=== PATIENT | male | born 1980 | race Caucasian/White ===

== ENCOUNTER 2018-05-28 09:39 | Emergency (ER) | payer BC, SELFPAY ==
[2018-05-28 10:26] VITALS: BP 141/100; PULSE 60; RESP 17; TEMP 36.8; O2SAT 98
--- NOTE | 2018-05-28 10:33 | DI.REPORT_ITS ---
SYMPTOM/DIAGNOSIS: MIDFOOT BONY TENDERNESS. LEFT FOOT: A minimally displaced oblique fracture of the diaphysis of the proximal phalanx of the 4th toe is demonstrated. There is no evidence of a dislocation.
--- NOTE | 2018-05-28 10:35 | ED.GENADUL_ITS ---
Disposition Clinical Impression: Toe fracture, left Disposition: HOME Condition: Stable Instructions: Toe Fracture (ED) Additional Instructions: Please continually wear your hard sole postop shoe until cleared by podiatry. You may continue to use [id number]-[id number] pain medication as needed. You should call the podiatry office tomorrow afternoon for arrangement of your follow-up appointment in the next 1-2 weeks as directed by their staff. Referrals: Rc Fulton DPM [[facility]YSICIAN] - 1 week Medical Decision Making - Radiology Data Radiology results: report reviewed, image reviewed - Medical Decision Making Patient presenting to the emergency department status post injury to the left foot 2 weeks ago with continued pain and discomfort. Physical exam shows midfoot tenderness along with mild base of fifth metatarsal tenderness no crepitus, no step-off, and normal gait and ambulation are noted but given continued pain and discomfort after 2 weeks of injury do feel that radiological imaging of the foot is warranted to rule out possible suspicion of mild fracture versus sprain. Otherwise I do not feel there are any other emergent needs at this time. Patient has a fracture to the proximal phalanx of the left fourth toe. Toe is not overly malrotated and alignment seems appropriate. Patient was put in a postop shoe and informed that he should follow-up with podiatry for reassessment in the next 1-2 weeks as recommended by their office. Otherwise patient has sufficiently been able to control pain rhlr-zsr-[id number] pain medications I do not feel that any other meds are needed at this time. After discussion of diagnosis and plan of care with patient patient agreed and stated no further needs, questions, or concerns at this time. History of Present Illness - General Chief complaint: Orthopedic Stated complaint: FOOT PROBLEM Time Seen by Provider: 05/28/18 09:58 Source: patient, RN notes reviewed Mode of arrival: ambulatory Limitations: no limitations - History of Present Illness Initial comments: Patient reports 2 weeks ago he was jumping off a dock and injured his left foot. He states since then he has had swelling to the lateral foot and recently had taken a long walk and noticed significant increase in swelling. He is a very active individual and is concerned due to continued pain and mild improvement. Onset/Timin -: week(s) Location: left, lower extremity Severity scale (1-10): 3 Quality: aching Consistency: constant Improves with: none Worsens with: other (Activity) Associated Symptoms: denies other symptoms Treatments Prior to Arrival: none - Related Data Unknown [No Known Home Meds] 05/28/18 Allergies Allergy/AdvReac Type Severity Reaction Status Date / Time No Known Allergies Allergy Unverified 04/11/14 19:57 Review of Systems Constitutional: no symptoms reported Respiratory: no symptoms reported Musculoskeletal: as per HPI Skin: denies: change in color Comment: All other systems reviewed and negative Past Medical History - Past Medical History Medical history: no medical history Surgical history: no surgical history - Social History Smoking status: never smoker Alcohol use: occasionally Drug use: none General Exam - General Limitations: no limitations General appearance: alert, in no apparent distress - Head Head exam: Present: atraumatic - Respiratory Respiratory exam: Absent: respiratory distress - Cardiovascular Cardiovascular Exam: Present: regular rate, normal rhythm - Expanded Lower Extremity Exam Left Lower Leg exam: Present: normal inspection Ankle exam: Present: normal inspection Foot/Toe exam: Present: full ROM, tenderness (To palpation of second third and fourth mid metatarsals), swelling (Mild to lateral foot), tenderness at base of 5th metatarsal (Very mild). Absent: ecchymosis, deformity, calcaneal tenderness Neuro vascular tendon exam: Present: no vascular compromise. Absent: pulse deficit, motor deficit, sensory deficit, tendon deficit, abnormal 2-point discrimination, significant pain with passive ROM of distal joint Gait: observed and normal - Neurological Exam Neurological exam: Present: alert, oriented X3. Absent: altered - Skin Skin exam: Present: warm, dry, intact, normal color Course Vital Signs - 24 hr 05/28/18 10:26 Temperature 36.8 C Pulse 60 Respiratory 17 Rate Blood Pressure 141/100 Pulse Oximetry 98
--- NOTE | 2018-05-29 09:09 | PDOC.ERCMPRO ---
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 Dr. Franks is PCP. Referral faxed to [facility] for them to make f/u. If patient can't be seen in a week with podiatry then he could be seen by Dr. Franks.
== END 2018-05-28 11:33 | disposition home or self-care (01) ==
LOC: ER 04-02 11:11
PROVIDERS: Emergency Provider Student in an Organized Health Care Education/Training Program; PCP Emergency Medicine
DX: S92.512A Displaced fracture of proximal phalanx of left lesser toe(s), initial encounter for closed fracture (principal)
CPT/HCPCS: 29515; 99284; 73630; 99282

== ENCOUNTER 2020-06-29 14:10 | Outpatient (CLI) | payer BC, SELFPAY ==
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
== END 2020-06-29 14:30 ==
PROVIDERS: PCP Nurse Practitioner Family; Referring Provider Nurse Practitioner Family; Visit Provider Physician Assistant
DX: M25.532 Pain in left wrist (principal)
CPT/HCPCS: 73110

== ENCOUNTER 2023-01-29 03:06 | Outpatient (CLI) | payer OTHER, SELFPAY ==
[2023-01-29 12:54] LABS: Hemoglobin A1C 5.7 % (<5.7)
[2023-01-29 13:16] LABS: Anion Gap 6.5 mmol/L (3-11); BUN 21 mg/dL (7-18); CO2 29.5 mmol/L (21.0-32.0); CREATININE 1.2 mg/dL (0.70-1.30); Calculated LDL 149 mg/dL (<100); Chloride 104 mmol/L (98-107); Cholesterol 218 mg/dL (<200); Estimated GFR 76.48 (mL/min/1.73m2); Glucose 97 mg/dL (74-106); HDL Cholesterol 39 mg/dL (40-60); Potassium 4.2 mmol/L (3.5-5.1); Sodium 140 mmol/L (136-145); TSH (W/Ref FT4) 2.05 uIU/mL (0.36-3.74); Triglyceride 152 mg/dL (<150)
== END 2023-01-29 03:07 | disposition home or self-care (01) ==
LOC: LOS 03:06
PROVIDERS: PCP Nurse Practitioner Family; Visit Provider Nurse Practitioner Family
DX: Z00.00 Encounter for general adult medical examination without abnormal findings (principal); R03.0 Elevated blood-pressure reading, without diagnosis of hypertension; E66.8 Other obesity; Z13.1 Encounter for screening for diabetes mellitus; Z13.29 Encounter for screening for other suspected endocrine disorder; Z13.220 Encounter for screening for lipoid disorders
CPT/HCPCS: 36415; 80048; 80061; 83036; 84443

== ENCOUNTER 2024-08-20 02:29 | Outpatient (CLI) | payer BC, SELFPAY ==
--- OUTSIDE RECORDS SUMMARY | 2024-08-20 02:30 | XMS_ITS | Referral Summary ---
Author Organization [facility] Address [address] [place] [address] Care Team Providers Care Cashier Courtesy Booth Name Role Phone Unknown, Provider Primary Care Provider Unava ilable Social History Tobacco Use Types Packs/Day Years Used Date Smoking Tobacco: Never Assessed Sex and Gender Information Value Date Recorded Sex Assigned at Not on file Gender Identity Not on file Sexual Orientation Not on file Plan of Treatment Not on file Care Teams Cashier Courtesy Booth Relationship Specialty Start Date End Date Unknown, ProviderMD PCP - General 09/01/15
--- OUTSIDE RECORDS SUMMARY | 2024-08-20 02:30 | XMS_ITS | Clinical Summary ---
Author Organization [facility] Address [address] [place] [address] Care Team Providers Care Towboat Pilot Name Role Phone Unknown, Provider MD Primary Care Provider Unava ilable Social History Tobacco Use Types Packs/Day Years Used Date Smoking Tobacco: Never Assessed Sex and Gender Information Value Date Recorded Sex Assigned at Not on file Gender Identity Not on file Sexual Orientation Not on file Plan of Treatment Health Maintenance Due Date Last Done Comments Hepatitis C Screen 1978 Hepatitis B Vaccine (1 of 3 - 19+ 3-dose series) 04/28 COVID-19 Vaccine (2022-24 season) 2023 Care Teams Towboat Pilot Relationship Specialty Start Date End Date Unknown, Provider, PCP - General 09/01/15
--- OUTSIDE RECORDS SUMMARY | 2024-08-20 02:30 | XMS_ITS | Encounter Summary ---
[place] [address] Care Team Providers Care Metal Cans Supervisor Name Role Phone Donna Alonzo APRN Primary Care Provider [phone] Encounter Details Date Type Department Care Team (Latest Contact Info) Description 06/28/2024 Travel Social History Tobacco Use Types Packs/Day Years Used Date Smoking Tobacco: Never Assessed Sex and Gender Information Value Date Recorded Sex Assigned at Not on file Gender Identity Not on file Sexual Orientation Not on file documented as of this encounter Plan of Treatment Not on file documented as of this encounter Visit Diagnoses Not on filedocumented in this encounter Care Teams Metal Cans Supervisor Relationship Specialty Start Date End Date Donna Alonzo APRN [address] [place] [address] PCP - General Family Medicine 02/05/24 documented as of this encounter
--- OUTSIDE RECORDS SUMMARY | 2024-08-20 02:30 | XMS_ITS | Encounter Summary ---
Author Organization [facility] Address [address] [place] [address] Care Team Providers Care Chief Building Inspector Name Role Phone Unavailable Primary Care Provider Unavailabl e Encounter Details Date Type Department Care Team (Late st Contact Info) Description 11/23/2002 Results Only [facility] conversion [address] [place] [address] Pravin Cuenca MD [address] [place] [address] Social History Tobacco Use Types Packs/Day Years Used Date Smoking Tobacco: Never Assessed Sex and Gender Information Value Date Recorded Sex Assigned at Not on file Gender Identity Not on file Sexual Orientation Not on file documented as of this encounter Plan of Treatment Not on file documented as of this encounter Procedures Procedure Name Priority Date/Time Associated Diagnosis Comments SURGICAL PATHOLOGY Routine 11/23/2002 0:00 EST documented in this encounter Results * SURGICAL PATHOLOGY (11/23/2002 0:00 EST) Pathology Report: SURGICAL PATHOLOGY REPORT Reports generated via electronic interface contain original data; however they are lacking the format of the original report. Caution should be taken when reading/interpreti ng unformatted reports. Name: ? ADONIS CARMONA ? Accession #: ? [id number] ? : ? 1980 (Age: 22) ??M ? Collect Date: ? 11/23/2002 ? Location: ? [facility] ? Receive Date: ? 11/23/2002 ? Provider: GAURI CUENCA MD Copy to: SAKINA GRAVES MD ? Final Pathologic Diagnosis: ? Hernia sac, right, inguinal, herniorrhaphy: - Fibromembranous connective tissue grossly consistent with hernia sac. Gross only. Document reviewed and electronically signed by: MIK PHELAN MD Report ??Date: 11/25/2002 09:24 By the signature above, the attending physician certifies that he/she has personally conducted a gross and/or microscopic examination of the described specimens and rendered or confirmed the above diagnosis. Specimen(s) Received: ? Hernia sac Clinical History: ? R indirect ing. Hernia; hernia sac Gross Description: ? Received in formalin labelled Carmona and hernia sac is a johnson-pink thin fibromembranous sac-like structure measuring 6.5 x 3.5 x 0.2 cm. The cut surfaces are johnson-pink and homogeneous. ??No discrete nodules are identified. ??No sections submitted. ??Gross diagnosis. (Meghann Zacarias-TRISTAN)/[facility] End of Report OWEN RENE 11/23/2002 11/23/2002 15: 58 EST Pravin Cuenca MD PATHOLOGY ORDERABLES Performing Organization Address City/State/[facility] Co de Phone Number OWEN RENE [address] [place] [address] documented in this encounter Visit Diagnoses Not on filedocumented in this encounter
--- OUTSIDE RECORDS SUMMARY | 2024-08-20 02:30 | XMS_ITS | Clinical Summary ---
Author Organization [facility] Address [facility] [place] [address] Care Team Providers Care Shared Services Manager Name Role Phone JaviDonna naranjo ADRIANNA Primary Care Provider [phone] Allergies No known active allergies Medications Medication Sig Dispensed Refills Start Date End Date Status ketoconazole (NIZORAL) 2 % ShampooIndications:Se borrheic dermatitis Apply topically to scalp & face in shower 2-3 times weekly. Lather on affected areas, leave on 3-5 minutes, then rinse. 120 mL 3 06/28/2024 Active Encounters Date Type Department Care Team Description 06/28/2024 3:40 PM EDT Office Visit Dermatology at [facility] [address] [place] [address] Ruddy Villalpando MD Multiple melanocytic nevi; Seborrheic dermatitis; Seborrheic keratoses; Lentigines; Nails angioma; Family history of melanoma 06/28/2024 Travel from Last 3 Months Immunizations Name Administration Dates Next Due Tdap (Adacel, Boostrix) 07/14/2006 Social History Tobacco Use Types Packs/Day Years Used Date Smoking Tobacco: Never Assessed Sex and Gender Information Value Date Recorded Sex Assigned at Not on file Gender Identity Not on file Sexual Orientation Not on file Plan of Treatment Health Maintenance Due Date Last Done Comments CT Colonography 1978 Colonoscopy 1978 Colorectal Cancer Screening 1978 FIT DNA 1978 FIT 1978 Sigmoidoscopy (10 year) with FIT yearly 1978 Sigmoidoscopy 1978 HIV screen 1996 Hepatitis C Screening 1996 Lipid Screening 1996 Hepatitis B vaccine (0-59 yrs) (1) 1997 Tetanus/Diphtheria/Pertussis Vaccines (2 - Td or Tdap) 07/14/2016 07/14/2006 Covid-19 Vaccine (1 - season) 2024 Influenza (Flu) vaccine (1 o f 1 - Influenza standard series) 06/20/2024 Care Teams Shared Services Manager Relationship Specialty Start Date End Date Donna Alonzo APRN [address] [place], [place] [id number] PCP - General Family Medicine 02/05/24
--- OUTSIDE RECORDS SUMMARY | 2024-08-20 02:30 | XMS_ITS | Encounter Summary ---
Author Organization [facility] [place] [address] Care Team Providers Care Cardiac Sonographer Name Role Phone Donna Alonzo APRN Primary Care Provider [phone] Reason for Visit * Consultation (Routine) - Authorized Specialty Diagnoses / Procedures Referred By Contjudy t Referred To Contact Dermatology Diagnoses Family history of malignant neoplasm of other organs or systems FAMILY HISTORY OF MELANOMA IN BOTH PARENTS Donna Alonzo APRN [address] [place] [address] [facility] Dermatology [address] [place] [address] Referral ID Status Reason Start Date Expiration Date Visits Requested Visits Authorized [id number] Authorized Consult, Test & Treat PCP Updated and/or Approved 02/05/2024 02/04/2025 6 6 Encounter Details Date Type Department Care Team (Late st Contact Info) Description 06/28/2024 3:40 PM EDT Office Visit Dermatology at [facility] [address] [place] [id number] Ruddy Villalpando MD [facility] [address] [place] [address] Multiple melanocytic nevi; Seborrheic dermatitis; Seborrheic keratoses; Lentigines; Nails angioma; Family history of melanoma Social History Tobacco Use Types Packs/Day Years Used Date Smoking Tobacco: Never Assessed Sex and Gender Information Value Date Recorded Sex Assigned at Not on file Gender Identity Not on file Sexual Orientation Not on file documented as of this encounter Progress Notes * Ruddy Villalpando MD - 06/28/2024 3:40 PM EDT Images from the original note were not included. DEPARTMENT OF DERMATOLOGY Medical Dermatology Clinic Note Provider: Ruddy Villalpando MD Patient's preferred name Adonis Preferred contact method for results [x]Phone []myD-H []Letter Detailed phone message OK? Yes Are there any other people with whom we may discuss your care? Past Medical History Date, location, treatment Melanoma No Dysplastic nevi No SCC No BCC No AKs No UV Exposure & Protection N Other relevant past medical history No Family History Details Melanoma Mother & father NMSC No Other relevant family history No Social History Occupation: Pre-Procedure Questions Details Allergy to lidocaine, epinephrine, Dermabond, chlorhexidine, or adhesives Bleeding disorder or blood thinners Implanted devices (Pacemaker, defibrillator, deep brain stimulator, cochlear implant) History of Present Illness: Adonis Allen is a 44 y.o. Patient is referred to the clinic at the request of Donna Alonzo for a full skin exam. Patient reports the following: - Reports dryness and scaling of the face and scalp occurring over the course of ~1 year. Review of Systems: General: Feeling well. Skin: No other skin concerns. Medications: Reviewed in eD-H Allergies: Reviewed in eD-H Skin Examination: Full skin examination: Patient asked to undress to their comfort level. Verbalized that the provider's preference is that patient remove all clothing and that the provider will not examine areas patient elects to keep covered. Examination of the scalp, hair, head, face, ears, neck, chest, axillae, abdomen, back, buttocks, genitalia, and upper and lower extremities was normal with the exception ofthe findings below. Assessment/Plan #. Melanocytic Nevi - Scattered brown macules and papules on trunk and extremities with reassuring pigment pattern on dermoscopy. - Discussed benign appearing nevi based on today's exam. - Recommended follow-up with dermatology if any changes in any pigmented lesions are noted or any concerns regarding new lesions arise. #. Seborrheic Dermatitis - Scale overlying erythematous patches on the beardline and scalp. - Discussed etiology and treatment options. - Start Rx ketoconazole 2% shampoo: Apply topically to scalp & face in shower 2- 3 times weekly.Lather on affected areas, leave on 3-5 minutes, then rinse. #. Seborrheic Keratoses - Stuck on, waxy papules on the trunk and extremities. - Discussed benign nature of lesions and provided reassurance. No treatment necessary at this time. #. Lentigines - Scattered light-brown, evenly pigmented, well-demarcated macules on sun-exposed areas of the trunk and extremities. - No worrisome pigmented lesions. Discussed benign nature of lesions and provided reassurance. Willcontinue to monitor. #. Nails Angiomas - Multiple bright red, well-demarcated papules on the trunk and extremities. - Discussed benign nature of lesions and provided reassurance. No treatment necessary at this time. #. Family History of Melanoma - Discussed with patient that given the increased risk factor of their positive family history for malignant melanoma, I recommended that they have a full skin exam every year. - Recommended self-monitoring of moles. Other: N/A RTC: 1 year for FSE []Note routed to children's nursery assistant [x]Recall placed in scheduling system []Appointment scheduled at checkout Scribe attestation: Rajiv Delroy Huddleston has performed the documentation for this encounter in the presence of and acting as a scribe for Ruddy Villalpando MD. I performed the above scribed service and agree with the accuracy of the documentation in this encounter. Reviewed and signed by: Ruddy Villalpando MD PGY-2 Dermatology [facility] Patient seen and evaluated with staff box printer: Jose L Yip MD Department of Dermatology [facility] * Jose L Yip MD - 06/28/2024 3:40 PM EDT I directly supervised Ruddy Villalpando MD in the care of this Dermatology patient in person. I saw and evaluated this patient with Ruddy Villalpando MD. Ruddy Villalpando MD presented the history and physical exam details to me, then we saw the patienttogether, and I confirmed these findings. I agree with details as written. My physical examination confirms Ruddy Villalpando MD's findings. The assessment and plan were formulated in discussion with me at the time of visit, and I agree with them as documented. JOSE L YIP MD Staff Rn Diabetes Department of Dermatology [facility] documented in this encounter Plan of Treatment Not on file documented as of this encounter Visit Diagnoses Diagnosis Multiple melanocytic nevi Seborrheic dermatitis Seborrheic dermatitis, unspecified Seborrheic keratoses Lentigines Other dyschromia Nails angioma Nevus, non-neoplastic Family history of melanoma Family history of other specified malignant neoplasm documented in this encounter Care Teams Cardiac Sonographer Relationship Specialty Start Date End Date Joannareena DonnaADRIANNA tee [address] [place] [address] PCP - General Family Medicine 02/05/24 documented as of this encounter
--- OUTSIDE RECORDS SUMMARY | 2024-08-20 02:30 | XMS_ITS | Encounter Summary ---
Author Organization [facility] Address [facility] [place] [address] Care Team Providers Care Housecalls Nurse Name Role Phone Donna Alonzo APRN Primary Care Provider [phone] Reason for Referral * Consultation (Routine) - Authorized Specialty Diagnoses / Procedures Referred By Elijah mtz Referred To Contact Dermatology Diagnoses Family history of malignant neoplasm of other organs or systems FAMILY HISTORY OF MELANOMA IN BOTH PARENTS Donna Alonzo APRN [address] [place] [address] [facility] Dermatology [address] [place] [address] Referral ID Status Reason Start Date Expiration Date Visits Requested Visits Authorized [id number] Authorized Consult, Test & Treat PCP Updated and/or Approved 02/05/2024 02/04/2025 6 6 Encounter Details Date Type Department Care Team (Late st Contact Info) Description 02/05/2024 Transcribe Orders eDH Incoming Referrals [phone] Donna Alonzo APRN [address] [place], [place] [address] Family history of malignant neoplasm of other organs or systems Social History Tobacco Use Types Packs/Day Years Used Date Smoking Tobacco: Never Assessed Sex and Gender Information Value Date Recorded Sex Assigned at Not on file Gender Identity Not on file Sexual Orientation Not on file documented as of this encounter Plan of Treatment Scheduled Referrals Name Type Priority Associated Diagnoses Order Schedule Referral to Dermatology Outpatient Referral Routine Family history of malignant neoplasm of other organs or systems Ordered: 02/05/2024 documented as of this encounter Visit Diagnoses Diagnosis Family history of malignant neoplasm of other organs or systems documented in this encounter Care Teams Housecalls Nurse Relationship Specialty Start Date End Date Donna Alonzo APRN [address] [place] [address] [address] [place] [address] PCP - General Family Medicine 02/05/24 documented as of this encounter
[2024-08-20 12:29] LABS: HCT 43.9 % (40.0-50.0); HGB 15.1 g/dL (13.5-17.5); MCH 30.4 pg (27.0-33.0); MCHC 34.4 % (32.0-36.0); MCV 88 fL (80-95); MPV 11.5 fL (8.0-11.0); Platelet Count 220 10^3/uL (130-400); RBC 4.97 10^6/uL (4.36-5.78); RDW 12.5 % (11.8-14.1); RDW-SD 40.1 fL; WBC 5.68 10^3/uL (4.4-10.8)
[2024-08-20 12:49] LABS: Anion Gap 9.8 mmol/L (3-11); BUN 15 mg/dL (7-18); CO2 26.2 mmol/L (21.0-32.0); CREATININE 1.1 mg/dL (0.70-1.30); Calculated LDL 143 mg/dL (<100); Chloride 106 mmol/L (98-107); Cholesterol 228 mg/dL (<200); Estimated GFR 83.84 (mL/min/1.73m2); Glucose 98 mg/dL (74-106); HDL Cholesterol 46 mg/dL (40-60); Potassium 4.2 mmol/L (3.5-5.1); Sodium 142 mmol/L (136-145); Triglyceride 195 mg/dL (<150)
[2024-08-20 12:53] LABS: Hemoglobin A1C 5.6 % (<5.7)
[2024-08-20 19:38] LABS: Hepatitis C Ab w Rflx HCV PCR Negative (Negative)
[2024-08-20 19:39] LABS: HBs Antibody, Quant <3.1 mIU/mL (See Note); Hep B Surface Ab Negative (See Note); Hepatitis B Core Antibody Negative (Negative); Hepatitis B Surface Antigen Negative (Negative)
[2024-08-20 19:42] LABS: HIV-1/2 Ag & Ab Screen Negative (Negative)
== END 2024-08-20 02:30 | disposition home or self-care (01) ==
LOC: LOS 02:29
PROVIDERS: PCP Nurse Practitioner Family; Visit Provider Nurse Practitioner Family
DX: Z11.59 Encounter for screening for other viral diseases (principal); Z00.00 Encounter for general adult medical examination without abnormal findings; R73.03 Prediabetes; E78.5 Hyperlipidemia, unspecified; Z11.4 Encounter for screening for human immunodeficiency virus [HIV]; I10 Essential (primary) hypertension
CPT/HCPCS: 36415; 80048; 80061; 85027; 86704; 86706; 86803; 87340; 87389; 83036

== ENCOUNTER 2025-05-15 09:19 | Emergency (ER) | payer BC, SELFPAY ==
[2025-05-15 09:27] VITALS: BP 136/101; PULSE 71; RESP 18; TEMP 37.7; O2SAT 98
--- NOTE | 2025-05-15 09:44 | ED.GENADUL_ITS ---
Discharge Plan Disposition Patient Disposition: Home Condition: Stable Discharge Details Clinical Impression: Night sweats, Chills Primary Care Provider: Donna Alonzo ED Provider: Steven Alonzo Home Meds and New Rx's Prescriptions: New doxycycline hyclate 100 mg tablet 100 mg PO BID Qty: 28 0RF Discharge Instructions Additional Instructions: You are being treated for likely tickborne illness. Take the doxycycline as prescribed. If you are not improving within a week follow-up with your primary care provider. If you feel significantly more ill or have new symptoms such as persistent vomiting or shortness of breath return to the emergency department for reevaluation. HPI General Mode of arrival: ambulatory . Date/Time Provider Initiated Documentation: 05/15/25 09:28 . Limitations to Documentation: no limitations . Information obtained by: patient . History of Present Illness 45 year old M presents to the emergency department with the chief complaint of ?tick born illness, described as moderate, Patient started experiencing this day(s) (7) and it has been intermittent. No relieving factors improve symptom(s), No exacerbating factors reported . Patient notes fever/chills; denies nausea/vomiting and shortness of breath. Patient did receive the following treatments prior to arrival, none Related Data Home Medications ?Medication ?Instructions ?Recorded ?Confirmed doxycycline hyclate 100 mg tablet 100 mg PO BID #28 ta bs 05/15/25 Previous Rx's ?Medication ?Instructions ?Recorded doxycycline hyclate 100 mg tablet 100 mg PO BID #28 ta bs 05/15/25 Allergies Allergy/AdvReac Type Severity Reaction Status Date / Time No Known Allergies Allergy Unverified 05/15/25 09:31 General Stated Complaint: Fever RAVEN: 3 Review of Systems All systems reviewed & are unremarkable except as noted in HPI and below Constitutional Constitutional: Reports chills, Reports fever(s) and Denies weakness Cardiovascular Cardiovascular: Denies chest pain and Denies dyspnea Respiratory Respiratory: Denies cough and Denies dyspnea Gastrointestinal Gastrointestinal: Denies abdominal pain, Denies nausea and Denies vomiting Neurologic Neurologic: Denies weakness Exam Const General: no acute distress Orientation: alert HENMT Head: normal to inspection Ears: external ears normal General nose exam: external nose normal Mouth: moist mucous membranes Eyes General: appearance normal, both eyes and all related structures Neck Neck: normal visual inspection Resp Effort & Inspection: normal respiratory effort and able to speak in complete sentences Cardio Rate: regular rate Skin General skin exam: no rashes or lesions noted Neuro General: patient alert and patient oriented x3 Extrem General: normal to inspection Psych Mental Status: mental status grossly normal Course Vital Signs Vital signs: Vital Signs Temperature 37.7 C H 05/15/25 09:27 Pulse 71 05/15/25 09:27 Respiratory Rate 18 05/15/25 09:27 Blood Pressure 136/101 H 05/15/25 09:27 Pulse Oximetry 98 05/15/25 09:27 Temperature 37.7 C H 05/15/25 09:27 Temperature Source Oral 05/15/25 09:27 Pulse 71 05/15/25 09:27 Respiratory Rate 18 05/15/25 09:27 Blood Pressure 136/101 H 05/15/25 09:27 Blood Pressure Position Sitting 05/15/25 09:27 Pulse Oximetry 98 05/15/25 09:27 Oxygen Delivery Method Room Air 05/15/25 09:27 Oxygen Flow Rate 0 05/15/25 09:27 Pain Level 0 05/15/25 09:27 Medical Decision Making 45-year-old male who denies any significant past medical history comes in with chief complaint of 1 week of chills and night sweats and also had fevers last week. He denies any recent rashes but states in February he had a tick with some surrounding redness which resolved. He is concerned he may have also had a tick recently in his foot. He currently has no rashes, does have a low-grade temp of 37.7 here. He denies any cough, abdominal pain, vomiting. I suspect he is likely does have a tickborne illness, will check a CBC and CMP and send tickborne panel. CBC unremarkable, CMP shows elevated liver function test. He has not had any abdominal pain and he has absolutely no tenderness in the right upper quadrant. I suspect his LFTs are elevated from likely tickborne illness. I am going to start him on doxycycline. I advised to follow-up with PCP especially not proving and return precautions given Differential Diagnosis Differential Diagnosis: Anaplasmosis, Lyme Lab Data Lab results reviewed: Yes I reviewed the patient's lab results. Quality:SDOH Health Related Social Needs: Health related social needs material hardship house/ec on circumstance PFSH All Active Problems (Updated 05/15/25 @ 10:59 by Steven Alonzo MD) Chills (Acute) Night sweats (Acute) Hypertension (Chronic) Hyperlipidemia (Chronic) Obesity (BMI 30-39.9) (Chronic) Surgical History S/P right inguinal hernia repair Family History Mother TIA (transient ischemic attack) Melanoma Father Hypertension Melanoma Sister No problems noted. Son No problems noted. Daughter No problems noted. Maternal Grandfather Lung cancer Maternal Grandmother No problems noted. Paternal Grandfather Lung cancer Paternal Grandmother Emphysema lung Social History (Updated 02/04/25 @ 13:36 by [place] Laura) Smoking/Tobacco Use Status: Former Tobacco Use tobacco type: cigarettes Quit Date: 10/20/02 Tobacco: How many years used: 10 Second Hand Exposure: Yes Smoking risk assessment performed?: Yes Alcohol Intake: current Alcohol Intake frequency: a few times a week Alcohol type: beer Details: 3-4 drinks on typical day, 6 or more drinks monthly or less Drug use: Socially Substance use type: marijuana Caregiver/Support person: No Household members: spouse Housing: house Communication Needs: None Do you need help understanding health information?: Rarely Pets and animals: Yes Pets and animals: dog(s) Sexually active: Yes Do you think of yourself as: straight/heterosexual Current gender identity: male What is your relationship status?: How often do you talk on the phone with friends or family?: three or more times per week How often do you get together with friends or relatives?: twice per week How often do you attend restorationism or mandaeism services?: decline to answer Do you belong to any clubs or organized social groups?: yes Panel score (0-1 are the most socially isolated patients): 3 What type of physical activity do you participate in: walking, bicycling and weight lifting Duration: 45-60 minutes/day Frequency: 3-4 times per week Melody/Buddhism: No preference Special melody needs: No Seatbelt use: always Helmet use: Yes Helmet use: always Drive intox or ride w/intox driver material handler: No Do you feel safe in your relationship?: Yes
[2025-05-15 10:17] LABS: Abs Immature Grans 0.02 10^3/uL (0.0-0.06); HCT 41.7 % (40.0-50.0); HGB 14.6 g/dL (13.5-17.5); MCH 29.8 pg (27.0-33.0); MCHC 35.0 % (32.0-36.0); MCV 85 fL (80-95); MPV 11.0 fL (8.0-11.0); Platelet Count 233 10^3/uL (130-400); RBC 4.90 10^6/uL (4.36-5.78); RDW 12.4 % (11.8-14.1); RDW-SD 38.9 fL; WBC 6.50 10^3/uL (4.4-10.8)
[2025-05-15 10:35] LABS: ALT 125 U/L (16-63); AST 69 U/L (15-37); Albumin 3.8 g/dL (3.4-5.0); Alkaline Phosphatase 150 U/L (46-116); Anion Gap 8.7 mmol/L (3-11); BUN 16 mg/dL (7-18); Bilirubin, Total 0.7 mg/dL (0.2-1.0); CO2 27.3 mmol/L (21.0-32.0); Calcium 10.2 mg/dL (8.5-10.1); Chloride 104 mmol/L (98-107); Estimated GFR 106.01 (mL/min/1.73m2); Glucose 129 mg/dL (74-106); Potassium 4.2 mmol/L (3.5-5.1); Sodium 140 mmol/L (136-145); Total Protein 7.6 g/dL (6.4-8.2)
[2025-05-15 10:43] LABS: RBC Morphology Normal
[2025-05-15 10:48] VITALS: BP 133/87; PULSE 64; RESP 18; TEMP 37; O2SAT 98
[2025-05-15] MEDS: Doxycycline Hyclate 100 MG CAP PO (11:10)
[2025-05-17 11:28] LABS: Lyme Ab w Rflx to Lyme Confirm Positive (Negative)
[2025-05-17 17:16] LABS: Lyme IgG Ab Positive (Negative)
[2025-05-19 13:29] LABS: B. miyamotoi PCR Negative (Negative); Babesia divergens/MO-1 Negative (Negative); Ehrlichia muris eauclairensis Negative (Negative)
== END 2025-05-15 11:32 | disposition home or self-care (01) ==
PROVIDERS: Emergency Provider Emergency Medicine; PCP Nurse Practitioner Family
DX: R61 Generalized hyperhidrosis (principal); R68.83 Chills (without fever); R53.83 Other fatigue
CPT/HCPCS: 99283 ×2; 36415; 80053; 86617; 87798; 85025; 86618

== ENCOUNTER 2025-07-28 04:17 | Outpatient (CLI) | payer BC, SELFPAY ==
[2025-07-28 07:43] LABS: Abs Immature Grans 0.02 10^3/uL (0.0-0.06); HCT 43.1 % (40.0-50.0); HGB 14.6 g/dL (13.5-17.5); Immature Grans % 0.3 %; MCH 29.9 pg (27.0-33.0); MCHC 33.9 % (32.0-36.0); MCV 88 fL (80-95); MPV 10.9 fL (8.0-11.0); Platelet Count 201 10^3/uL (130-400); RBC 4.89 10^6/uL (4.36-5.78); RDW 12.4 % (11.8-14.1); RDW-SD 40.4 fL; WBC 6.20 10^3/uL (4.4-10.8)
[2025-07-28 08:19] LABS: ALT 30 U/L (16-63); AST 20 U/L (15-37); Albumin 3.8 g/dL (3.4-5.0); Alkaline Phosphatase 94 U/L (46-116); Anion Gap 6.3 mmol/L (3-11); BUN 18 mg/dL (7-18); Bilirubin, Total 0.5 mg/dL (0.2-1.0); CO2 28.7 mmol/L (21.0-32.0); Calcium 10.1 mg/dL (8.5-10.1); Chloride 104 mmol/L (98-107); Estimated GFR 93.42 (mL/min/1.73m2); Glucose 100 mg/dL (74-106); Potassium 4.3 mmol/L (3.5-5.1); Sodium 139 mmol/L (136-145); Total Protein 7.6 g/dL (6.4-8.2)
== END 2025-07-28 04:18 | disposition home or self-care (01) ==
LOC: LBO 04:17
PROVIDERS: PCP Nurse Practitioner Family; Visit Provider Family Medicine
DX: R79.89 Other specified abnormal findings of blood chemistry (principal); Z00.00 Encounter for general adult medical examination without abnormal findings
CPT/HCPCS: 36415; 80053; 85025